=== PATIENT | male | born 1950 | race Caucasian/White ===

== ENCOUNTER 2018-04-20 06:13 | Day surgery (SDC) | payer OTHER ==
[~2018-04-20] VITALS: Ht 172.7 cm; Wt 83.7 kg
[~2018-04-20 06:13] MED LIST: LISI5 PO; NAPR250 PO; TAMS.4ER PO
[2018-04-20] MEDS ORDERED: Prilosec Otc20 MG PO (06:47)
[2018-04-20] MEDS ORDERED: DOXA4 PO (06:47)
--- NOTE | 2018-04-20 11:18 | NUR ---
04/20/18 Paramjit Treviño LATE ENTRY NARRATIVE RECEIVED REPORT FROM [facility].C @5106 AND TOOK OVER PATIENT CARE. PATIENT VSS, TOLERATING PO FLUIDS WELL, DENIES PAIN & N/V AT THIS TIME. NURSE ASSISTED PATIENT WALK OUT TO HIS RIDE HOME.
== END 2018-04-20 08:10 | disposition home or self-care (01) ==
LOC: ORSCSDS 06:13
PROVIDERS: Ophthalmology
PROC: 08RK3JZ Replacement of Left Lens with Synthetic Substitute, Percutaneous Approach (ICD-10-PCS; principal; 2018-04-20 07:30)
DX: H25.12 Age-related nuclear cataract, left eye (principal); H21.81 Floppy iris syndrome; K21.9 Gastro-esophageal reflux disease without esophagitis; Z79.899 Other long term (current) drug therapy
CPT/HCPCS: J2001; J2250; J3010; J3301; J7120; V2632

== ENCOUNTER → 2019-04-12 | Outpatient (CLI) | payer MEDICARE, OTHER ==
[~2019-04-12] MED LIST changes: +DOXA4 PO; +Prilosec Otc20 MG PO
== END | disposition home or self-care (01) ==
LOC: LAB SHORT 11:13 → PLD 11:13
DX: D48.5 Neoplasm of uncertain behavior of skin (principal)
CPT/HCPCS: 88305

== ENCOUNTER → 2019-10-24 | Outpatient (CLI) | payer MEDICARE, OTHER | LOC: PLD 11:00 → LAB SHORT 11:00 | DX: D48.5 Neoplasm of uncertain behavior of skin (principal) | CPT/HCPCS: 88305 ==

== ENCOUNTER → 2020-07-10 | Outpatient (CLI) | payer MEDICARE, OTHER | END | disposition home or self-care (01) | LOC: LAB 16:03 → LAB SHORT 16:03 | DX: D48.5 Neoplasm of uncertain behavior of skin (principal) | CPT/HCPCS: 88305 ==